=== PATIENT | male | born 1965 | race Caucasian/White ===

== ENCOUNTER 2020-12-31 12:44 | Day surgery (SDC) | payer BC ==
[~2020-12-31] VITALS: Ht 180.3 cm; Wt 108.9 kg
--- NOTE | ~2020-12-31 | O ---
[address] [address] OPERATIVE REPORT Name: NIMCO ALSTON Room #: 150-1 [facility]..#: [id number] Admission: 12/31/20 Attend Phys: Gustavo Newell MD Discharge: Date of : 69 Report #: [id number] THIS REPORT FOR: cc: FAM - Family physician unknown FAM - Family physician unknown uGstavo Newell MD ~ DATE OF SERVICE: 12/31/2020 SERVICE: Orthopedics. FACILITY: [facility]. SURGEON: Gustavo Newell MD KICKING MACHINE OPERATOR: Flor Harper NP PREOPERATIVE DIAGNOSES: 1. Left knee pain. 2. Left knee medial meniscus tear. 3. Left knee patellar chondromalacia. POSTOPERATIVE DIAGNOSES: 1. Left knee pain. 2. Left knee medial meniscus tear. 3. Left knee patellar chondromalacia. PROCEDURES: Left knee arthroscopy, partial medial meniscectomy and patellar chondroplasty. COMPLICATIONS: None. DRAINS: None. SPECIMENS: None. ANESTHESIA: General. FINDINGS: 1. Unstable flap tear of the medial meniscus extending from the posterior horn to the body. 2. Intact lateral compartment. 3. Grade 3 chondromalacia of the patella, treated with chondroplasty with an intact trochlea. HISTORY: The patient is a gentleman with history of mechanical symptoms and pain in his left knee that failed conservative measures including rest, activity [address] [address] OPERATIVE REPORT Name: NIMCO ALSTON Room #: 150-1 [facility].#: [id number] Admission: 12/31/20 Attend Phys: Gustavo Newell MD Discharge: Date of : 69 Report #: [id number] modifications, physical therapy, oral medicines, home modalities. He had an MRI that showed a flap tear of the medial meniscus corresponding with the symptoms. He is indicated for surgical treatment after failing conservative measures. Risks, benefits, alternatives and indications were discussed in detail. Risks include but not limited to pain, bleeding, infection, injury to nerves or blood vessels, persistent pain despite surgical intervention, failure of any repairs, progression of preexisting chondral injury, stiffness, need for further surgery as well as complications related to anesthesia. Despite the risks, he wished to proceed. PROCEDURE IN DETAIL: After left lower extremity was correctly identified in the preoperative holding area as the operative extremity, the patient was taken to the operating room where general anesthesia was induced without complications. He was padded appropriately. Prophylactic antibiotics were administered in appropriate time. Tourniquet was applied to left leg. Left lower extremity was then prepped and draped in standard sterile fashion. Timeout procedure was performed. Esmarch was used to exsanguinate and tourniquet was inflated to 250 mmHg. After the timeout, standard anterolateral viewing portal was established followed by anteromedial working portal. Diagnostic arthroscopy revealed the above findings. There was chondromalacia of the patellofemoral joint, which was treated with chondroplasty. A limited synovectomy was performed in the anterior aspect of the knee. The scope was placed in the medial compartment. Medial meniscus ____ biter and shaver were used to perform a partial meniscectomy. There was a radial tear near the root as well that was trimmed with a biter, but the main flap was at the posterior horn body junction, approximately 25% meniscal volume was resected. There was no significant chondromalacia in the medial compartment. The leg was placed in the [id number] position, the lateral compartment was evaluated and found to be normal. The anterior cruciate ligament was normal. The knee was placed into extension. We then completed the chondroplasty of the patella and switched the scope to the medial portal, working portal lateral and then finalized the chondroplasty. Arthroscopic effusion was drained. Instruments removed. Portal sites were closed. Sterile dressing was applied. The patient was awakened from anesthesia and taken to recovery room in stable condition. No complications. All counts were correct. By: [id number] Gustavo Newell MD /nt
[~2020-12-31 12:44] MED LIST: MULTI VITAMIN1 EACH PO
[2020-12-31 13:57] VITALS: BP 134/90
[2020-12-31 18:02] VITALS: BP 134/90
== END 2020-12-31 18:25 | disposition home or self-care (01) ==
LOC: TBA 12:44 → OR 12:44 → TBA 12:45 → OR 13:31
PROVIDERS: ATTEND Orthopaedic Surgery Sports Medicine
DX: M25.562 Pain in left knee (principal); S83.242A Other tear of medial meniscus, current injury, left knee, initial encounter; M22.42 Chondromalacia patellae, left knee; Z20.822 Contact with and (suspected) exposure to COVID-19; X58.XXXA Exposure to other specified factors, initial encounter; Y93.89 Activity, other specified; Y92.89 Other specified places as the place of occurrence of the external cause; Y99.8 Other external cause status
CPT/HCPCS: 50010; 50101; 50405; 52313; 56527; 57103; 57180; 58589; 58680; 58681; 59024; 62110; 62900; 70005